=== PATIENT | male | born 1995 | race African-American/Black ===

== ENCOUNTER 2025-03-29 18:28 | Emergency (ER) | payer OTHER, SELFPAY ==
[~2025-03-29] VITALS: Ht 170.2 cm; Wt 157.0 kg
[2025-03-29 20:39] VITALS: BP 164/118; TEMP 97.6; O2SAT 99
[2025-03-29] MEDS ORDERED: ELIQ5TAB PO (21:45)
== END 2025-03-29 21:49 | disposition home or self-care (01) ==
LOC: M ED 18:28
DX: Z76.0 Encounter for issue of repeat prescription (principal); Z79.01 Long term (current) use of anticoagulants; Z91.09 Other allergy status, other than to drugs and biological substances; Z86.711 Personal history of pulmonary embolism